=== PATIENT | female | born 1955 | race Two or more races ===

== ENCOUNTER 2018-08-20 22:30 | Emergency (ER) | payer SELFPAY ==
[~2018-08-20] VITALS: Ht 160 cm; Wt 45.4 kg
[2018-08-20 22:50] VITALS: BP 112/73
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
[2018-08-21 00:15] VITALS: BP 112/73
== END 2018-08-21 00:16 | disposition home or self-care (01) ==
LOC: EDBD 22:30 → EMR 22:46
DX: F23 Brief psychotic disorder (principal); F91.9 Conduct disorder, unspecified; F19.10 Other psychoactive substance abuse, uncomplicated
CPT/HCPCS: 99282